=== PATIENT | female | born 2000 | race Caucasian/White ===

== ENCOUNTER 2020-03-28 11:05 | Emergency (ER) | payer SELFPAY ==
--- NOTE | 2020-03-28 12:38 | ER ---
Nurse's Notes [facility] Name: Augustine Cade Age: 19 yrs Sex: Female : 2000 Arrival Date: 03/28/2020 Time: 11:10 Bed 7 Private MD: Diagnosis: Nausea with vomiting, unspecified Presentation: 03/28 11:10 Chief complaint: EMS states: 19YO WF, 37 WK GESTATION, VOMITING x5 THIS AM. Coronavirus bp screen: At this time, the client does not indicate any symptoms associated with coronavirus-19. Ebola Screen: No symptoms or risks identified at this time. Initial Sepsis Screen: Does the patient meet any 2 criteria? No. Patient's initial sepsis screen is negative. Does the patient have a suspected source of infection? No. Patient's initial sepsis screen is negative. Risk Assessment: Do you want to hurt yourself or someone else? Patient reports no desire to harm self or others. Onset of symptoms was March 28, 2020. Care prior to arrival: Medication(s) given: zofran 4 mg, IV initiated. 20 GA, in the right antecubital area. 11:10 Method Of Arrival: EMS: [facility] bp 11:10 Acuity: GLENN 4 bp Triage Assessment: 11:13 General: Appears in no apparent distress. comfortable, Behavior is cooperative, bp appropriate for age, anxious. Pain: Denies pain. EENT: No deficits noted. Neuro: No deficits noted. Cardiovascular: No deficits noted. Respiratory: No deficits noted. GI: Reports nausea, vomiting. : No signs and/or symptoms were reported regarding the genitourinary system. Derm: No deficits noted. Musculoskeletal: No deficits noted. Historical: - Allergies: 11:13 No Known Allergies; bp - Home Meds: 11:13 None [Active]; bp - PMHx: 11:13 None; bp - Immunization history:: Adult Immunizations up to date. - Social history:: Smoking status: Patient denies any tobacco usage or history of. - Family history:: not pertinent. - Hospitalizations: : No recent hospitalization is reported. Screenin:13 Abuse screen: Denies threats or abuse. Denies injuries from another. Nutritional bp screening: No deficits noted. Tuberculosis screening: No symptoms or risk factors identified. Fall Risk None identified. Assessment: 11:13 General: SEE TRIAGE NOTE. GI: Abdomen is GRAVID. bp 11:54 Reassessment: ALL CURRENT ORDERS COMPLETED. UOP RESULTS PENDING. bp 12:52 Reassessment: PT D/C HOME AMBULATORY, DX WITH UTI AND NAUSEA/VOMITING. bp Vital Signs: 11:10 BP 106 / 64; Pulse 72; Resp 16; Temp 98; Pulse Ox 100% ; bp 11:54 BP 141 / 84; Pulse 91; Resp 17; Pulse Ox 100% ; bp 12:52 BP 109 / 51; Pulse 87; Resp 16; Temp 98; Pulse Ox 98% ; bp Vitals: 11:27 Heart Tones 140. bp ED Course: 11:10 Patient arrived in ED. bp 11:12 Triage completed. bp 11:13 Arm band placed on. bp 11:13 Patient has correct armband on for positive identification. Bed in low position. Call bp light in reach. Side rails up X2. 11:13 Maintain EMS IV. Dressing intact. Good blood return noted. Site clean \T\ dry. Gauge \T\ bp site: 20 GAUGE L AC. 11:14 Kevin Dolan, RN is Primary Nurse. bp 11:15 Ye Tran MD is Attending Physician. rn 12:52 No provider procedures requiring assistance completed. IV discontinued, intact, bp bleeding controlled, No redness/swelling at site. Pressure dressing applied. Administered Medications: No medications were administered Outcome: 12:37 Discharge ordered by . rn 12:52 Discharged to home ambulatory. bp 12:52 Condition: stable 12:52 Discharge instructions given to patient, Instructed on discharge instructions, follow up and referral plans. medication usage, Demonstrated understanding of instructions, follow-up care, medications, Prescriptions given X 1. 12:54 Patient left the ED. bp Signatures: eY Tran MD MD rn Peltier, Brian, RN RN bp
--- NOTE | 2020-03-28 12:38 | EDPHYS ---
Physician Documentation [facility] Name: Augustine Cade Age: 19 yrs Sex: Female : 2000 Arrival Date: 03/28/2020 Time: 11:10 Bed 7 Private MD: ED Physician Ye Tran HPI: 03/28 11:30 This 19 yrs old Female presents to ER via EMS with complaints of Vomiting. rn 11:30 The patient presents to the emergency department with nausea, vomiting. Onset: The rn symptoms/episode began/occurred this morning. Possible causes: unknown, . The symptoms are aggravated by nothing. The symptoms are alleviated by nothing. Severity of symptoms: At their worst the symptoms were moderate in the emergency department the symptoms have improved. The patient has experienced similar episodes in the past. Reports woke up this morning, threw up 4-5 times, no blood, no fever/abd pain/diarrhea. No trauma. No vaginal bleeding or discharge. Is 37 weeks gestation, is feeling baby move. Given 4mg zofran by EMS, and now states feels fine. Has private OB. Reports no leakage of fluid but has noticed over last 3 days feels "wet". . Historical: - Allergies: 11:13 No Known Allergies; bp - Home Meds: 11:13 None [Active]; bp - PMHx: 11:13 None; bp - Immunization history:: Adult Immunizations up to date. - Social history:: Smoking status: Patient denies any tobacco usage or history of. - Family history:: not pertinent. - Hospitalizations: : No recent hospitalization is reported. ROS: 11:30 Constitutional: Negative for fever, chills, and weight loss, Eyes: Negative for injury, rn pain, redness, and discharge, Cardiovascular: Negative for chest pain, palpitations, and edema, Respiratory: Negative for shortness of breath, cough, wheezing, and pleuritic chest pain, Abdomen/GI: Negative for abdominal pain, diarrhea, and constipation, : Negative for injury, bleeding, discharge, and swelling, MS/Extremity: Negative for injury and deformity, Skin: Negative for injury, rash, and discoloration, Neuro: Negative for headache, weakness, numbness, tingling, and seizure. Exam: 11:30 Constitutional: This is a well developed, well nourished patient who is awake, alert, rn and in no acute distress. Head/Face: Normocephalic, atraumatic. Cardiovascular: Regular rate and rhythm. No pulse deficits. Respiratory: No increased work of breathing, no retractions or nasal flaring. Abdomen/GI: soft, + gravid uterus with movement. No tenderness or rebound. Skin: Warm, dry with normal turgor. Normal color with no rashes, no lesions, and no evidence of cellulitis. MS/ Extremity: Pulses equal, no cyanosis. Neurovascular intact. Full, normal range of motion. Equal circumference. Neuro: Awake and alert, GCS 15, oriented to person, place, time, and situation. Cranial nerves II-XII grossly intact. Motor strength 5/5 in all extremities. Sensory grossly intact. Cerebellar exam normal. Vital Signs: 11:10 BP 106 / 64; Pulse 72; Resp 16; Temp 98; Pulse Ox 100% ; bp 11:54 BP 141 / 84; Pulse 91; Resp 17; Pulse Ox 100% ; bp 12:52 BP 109 / 51; Pulse 87; Resp 16; Temp 98; Pulse Ox 98% ; bp MDM: 11:15 Patient medically screened. rn 12:35 Differential diagnosis: gastritis, viral gastroenteritis, gastroenteritis, rn related nausea, UTI. Data reviewed: vital signs, nurses notes, lab test result(s), and as a result, I will discharge patient. Counseling: I had a detailed discussion with the patient and/or guardian regarding: the historical points, exam findings, and any diagnostic results supporting the discharge/admit diagnosis, lab results, the need for outpatient follow up, to return to the emergency department if symptoms worsen or persist or if there are any questions or concerns that arise at home. Response to treatment: the patient's symptoms have markedly improved after treatment, the patient's condition has returned to base line, the patient is now symptom free, and as a result, I will discharge patient. Special discussion: I discussed with the patient/guardian in detail that at this point there is no indication for admission to the hospital. It is understood, however, that if the symptoms persist or worsen the patient needs to return immediately for re-evaluation. Based on the history and exam findings, there is no indication for further emergent testing or inpatient evaluation. I discussed with the patient/guardian the need to see the OB Gyne specialist for further evaluation of the symptoms. ED course: Pt feels much better after EMS zofran, UA neg for infection, FHTs normal. Repeat exam does not reveal abd pain, is ambulatory to bathroom without apparent pain. Recommend she goes to [facility] for nitrazine testing and to rule out rupture of membranes given "feeling wet" for a few days. Pt understands.. 03/28 11:15 Order name: Urine Microscopic Only; Complete Time: 12:45 rn 03/28 11:58 Order name: Urine Dipstick--Ancillary (enter results) em1 03/28 11:15 Order name: Urine Dipstick-Ancillary (obtain specimen); Complete Time: 11:54 rn 03/28 11:15 Order name: FHT's; Complete Time: 11:27 rn 03/28 11:15 Order name: PO challenge; Complete Time: 11:54 rn 03/28 12:45 Order name: Urine Culture EDMS Administered Medications: No medications were administered Disposition: 03/28/20 12:37 Discharged to Home. Impression: Nausea with vomiting, unspecified. - Condition is Stable. - Discharge Instructions: Nausea and Vomiting, Adult, Third Trimester of , [id number]. - Prescriptions for Macrobid 100 mg Oral Capsule - take 1 capsule by ORAL route every 12 hours for 7 days; 14 capsule. - Medication Reconciliation Form, Thank You Letter, Antibiotic Education, Prescription Opioid Use form. - Follow up: Private Physician; When: 1 - 2 days; Reason: Recheck today's complaints, Re-evaluation by your physician. - Problem is new. - Symptoms have improved. Signatures: Dispatcher [employer] EDMS Ye Tran MD MD rn Peltier, Brian, RN RN bp Corrections: (The following items were deleted from the chart) 12:54 12:37 03/28/2020 12:37 Discharged to Home. Impression: Nausea with vomiting, bp unspecified. Condition is Stable. Forms are Medication Reconciliation Form, Thank You Letter, Antibiotic Education, Prescription Opioid Use. Follow up: Private Physician; When: 1 - 2 days; Reason: Recheck today's complaints, Re-evaluation by your physician. Problem is new. Symptoms have improved. rn
[2020-03-28 12:43] LABS: Urine Bacteria 20-50 /HPF (<20); Urine Culture Reflex Order REFLEXED; Urine Mucus 3+ /HPF (NONE SEEN); Urine RBC <5 /HPF (NONE SEEN)
[2020-03-28 12:50] LABS: Urine Blood NEGATIVE (NEG); Urine Glucose NEGATIVE (NEG); Urine Protein 1+ (NEG); Urine Specific Gravity >1.030 (1.005-1.030); Urine pH 5.5 (5.0-7.0)
[2020-03-28 13:14] VITALS: TEMP 98
[2020-03-28 13:17] VITALS: BP 109/51; O2SAT 98
== END 2020-03-28 12:54 | disposition home or self-care (01) ==
LOC: ER 11:05
DX: O21.9 Vomiting of pregnancy, unspecified (principal); Z3A.37 37 weeks gestation of pregnancy
CPT/HCPCS: 81003; 81015; 87086; 87088; 99283

== ENCOUNTER 2023-01-04 16:54 | Emergency (ER) | payer SELFPAY ==
[2023-01-04] MEDS ORDERED: GLYCERIN PEDI RECTAL SUPP PR ONE (17:36)
[2023-01-04 17:54] LABS: Absolute Lymphocytes (CBC) 0.9 K/uL (0.7-4.9); Hematocrit 34.4 % (36.0-45.0); Lymphocytes % 6.8 % (15.3-44.8); MPV 7.7 fL (7.6-11.3); RBC Red Blood Cell Count 3.91 M/uL (3.86-4.86)
[2023-01-04 17:54] LABS: Specific Gravity 1.019 (1.005-1.030); Urine Bilirubin NEGATIVE (Negative); Urine Blood Negative (Negative); Urine Clarity Clear (Clear); Urine Color Light-Yellow (Yellow); Urine Glucose NEGATIVE (Negative); Urine Protein NEGATIVE (Negative); Urine Urobilinogen Normal (Normal); Urine pH 6.5 (5.0-7.0)
[2023-01-04 18:22] LABS: Potassium 3.7 mEq/L (3.5-5.1)
--- NOTE | 2023-01-04 18:34 | RAD REPORT ---
EXAM DESCRIPTION: US - Transvaginal OB - 01/04/2023 6:17 pm CLINICAL HISTORY: ABD CRAMPING, COMPARISON: No comparisons TECHNIQUE: Sonographic grayscale and color flow images of the pelvis were obtained through transvagi nal approach. FINDINGS: No live intrauterine is identified. Thickened endometrium, measuring 2.[address], with trace fluid within the endometrial cavity, and echogenic margins. No gestational sac. Maternal ovaries are identified, with the right ovary measuring 2.6 x 1.5 x 1.5 centimeter, and left ovary measuring 2.9 x 1.8 x 2.0 centimeter. A thick walled cystic left adnexal structure separate fro m the ovary measures 1.9 x 1.4 x 1.5 centimeter, and demonstrates ring of fire vascularity. Moderate, mildly complex, free pelvic fluid. IMPRESSION: 1. No intrauterine . 2. Cystic thick-walled left adnexal structure with ring of fire vascularity separate from the left ov chauncey, with free pelvic fluid. Findings raise concern for a ruptured ectopic . Please correlat e clinically, and with beta HCG level. The findings were communicated to Sadiq Bolton on 01/04/2023 at 18:27 hours.
--- NOTE | 2023-01-04 18:48 | ER ---
Nurse's Notes [facility] Name: Augustine Cade Age: 22 yrs Sex: Female : 2000 Arrival Date: 01/04/2023 Time: 16:54 Bed 6 Private MD: Diagnosis: Other ectopic without intrauterine -ruptured Presentation: 01/04 17:00 Chief complaint: Patient states: ABD/Pelvic cramping since 01/02/23, states about 6 vg1 weeks . Stated is spotting and has been constipated for about two weeks. Coronavirus screen: Vaccine status: Patient reports being unvaccinated. Client denies travel out of the [place] in the last 14 days. Ebola Screen: Patient negative for fever greater than or equal to 101.5 degrees Fahrenheit, and additional compatible Ebola Virus Disease symptoms Patient denies exposure to infectious person. Patient denies travel to an Ebola-affected area in the 21 days before illness onset. Initial Sepsis Screen: Does the patient meet any 2 criteria? No. Patient's initial sepsis screen is negative. Does the patient have a suspected source of infection? No. Patient's initial sepsis screen is negative. Risk Assessment: Do you want to hurt yourself or someone else? Patient reports no desire to harm self or others. Onset of symptoms was January 02, 2023. 17:00 Method Of Arrival: Wheelchair vg1 17:00 Acuity: GLENN 3 vg1 Triage Assessment: 17:06 General: Appears uncomfortable, Behavior is crying. Pain: Complains of pain in right vg1 lower quadrant, left lower quadrant and pelvis Pain currently is 8 out of 10 on a pain scale. Pain began 2-3 days ago. GI: Reports nausea, vomiting. : Reports vaginal bleeding that is spotty, dark red. 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 - Social history:: Smoking status: Reported history of juuling and/or vaping. Screenin:09 [facility] ED Fall Risk Assessment (Adult) History of falling in the last 3 months, ph including since admission No falls in past 3 months (0 pts) Confusion or Disorientation No (0 pts) Intoxicated or Sedated No (0 pts) Impaired Gait No (0 pts) Mobility Assist Device Used No (0 pt) Altered Elimination No (0 pt) Score/Fall Risk Level 0 - 2 = Low Risk Oriented to surroundings, Maintained a safe environment, Hourly rounding (assess needs \T\ fall precautionary measures) done. Abuse screen: Denies threats or abuse. Denies injuries from another. Nutritional screening: No deficits noted. Tuberculosis screening: No symptoms or risk factors identified. Assessment: 17:20 General: Appears in no apparent distress. Behavior is cooperative, appropriate for age, ph anxious, crying. Pain: Complains of pain in suprapubic area. Neuro: Level of Consciousness is awake, alert, obeys commands, Oriented to person, place, time, situation. Cardiovascular: Capillary refill < 3 seconds in bilateral fingers Patient's skin is warm and dry. Respiratory: Airway is patent Respiratory effort is even, unlabored, Respiratory pattern is regular, symmetrical. GI: Abd is soft X 4 quads Reports lower abdominal pain, constipation, nausea. : Reports vaginal bleeding that is brown, spotty. Derm: Skin is pink, warm \T\ dry. Vital Signs: 17:00 BP 111 / 73; Pulse 89; Resp 16; Temp 98.4(O); Pulse Ox 99% on R/A; Weight 47.63 kg; vg1 Height 5 ft. 0 in. ; Pain 8/10; 18:49 BP 141 / 90; Pulse 82; Resp 18; Pulse Ox 98% on R/A; ph 19:23 BP 107 / 69; Pulse 82; Resp 17; Pulse Ox 100% on R/A; ll3 17:00 Body Mass Index 20.51 (47.63 kg, 152.4 cm) vg1 17:00 Pain Scale: Adult vg1 ED Course: 16:55 Patient arrived in ED. ts1 16:55 [facility]C [facility]. kb 16:55 Sadiq Bolton MD is Attending Physician. kb 17:06 Triage completed. vg1 17:06 Arm band placed on. vg1 17:09 Ramonita Horvath, RN is Primary Nurse. ph 17:10 Patient has correct armband on for positive identification. Bed in low position. Call ph light in reach. Side rails up X 1. Pulse ox on. NIBP on. Door closed. Noise minimized. Warm blanket given. 17:13 Radiology exam delayed due to test not completed at this time. aa4 17:21 Missed attempt(s): 22 gauge in right antecubital area. Bleeding controlled, band aid ph applied, catheter tip intact. 18:19 US Transvaginal Ob In Process Unspecified. EDMS 18:43 called and spoke with Norah Quick \ transfer center. kj1 18:49 Inserted saline lock: 22 gauge in left antecubital area, using aseptic technique. ph 18:51 No provider procedures requiring assistance completed. Patient transferred, IV remains ph in place. 19:23 Patient transferred, IV remains in place. ll3 Administered Medications: 17:42 Drug: Glycerin (Adult) [place] Suppository 1 supp Route: CO; ph 19:23 Follow up: Response: No adverse reaction ll3 19:02 Drug: NS 0.9% IV 1000 ml Route: IV; Rate: 1000 ml; Site: left antecubital; ph 19:22 Follow up: Response: No adverse reaction; IV Status: Infusion continued upon transfer; ll3 IV Intake: 500ml 19:02 Drug: Ondansetron IVP 4 mg Route: IVP; Site: left antecubital; ph 19:22 Follow up: Response: No adverse reaction ll3 19:03 Drug: morphine IVP or IV 4 mg Route: IVP; Infused Over: 4 mins; Site: left antecubital; ph 19:22 Follow up: Response: No adverse reaction; Marked relief of symptoms ll3 Medication: 17:09 VIS not applicable for this client. ph Intake: 19:22 IV: 500ml; Total: 500ml. ll3 Outcome: 18:48 ER care complete, transfer ordered by MD. jean 19:23 Transferred by ground EMS to [facility], Transfer form ll3 completed. X-rays sent w/ patient. 19:23 Condition: stable 19:23 Instructed on the need for transfer, Demonstrated understanding of instructions. 19:43 Patient left the ED. ll3 Signatures: Dispatcher [employer] EDMS Mary Cardenas, FAWN-Caryn BIOFUELS PLANT CONSTRUCTION WORKER-Ckb Deborah Wells aa4 Ramonita Horvath, RN RN ph Ronald, Praveena kj1 Romina Bronson RN RN vg1 Jamie Zheng RN RN ll3 Bell Barrera, [place] [facility] ts1
--- NOTE | 2023-01-04 18:48 | EDPHYS ---
Physician Documentation [facility] Name: Augustine Caed Age: 22 yrs Sex: Female : 2000 Arrival Date: 01/04/2023 Time: 16:54 Bed 6 Private MD: ED Physician Sadiq Bolton HPI: 01/04 17:10 This 22 yrs old Female presents to ER via Wheelchair with complaints of Abdominal kb Cramping, Vaginal Bleeding, 6wks preg. 17:10 The patient presents to the emergency department with abdominal pain, of the suprapubic kb area, described as crampy, vaginal bleeding, described as spotting. The estimated gestational age is 6 weeks. course: care: at a clinic, Leakage of Fluid: none appreciated, Ultrasound: the patient had an ultrasound, which was normal. Previous pregnancies: in previous pregnancies patient has had vaginal delivery, no complications. Associated signs and symptoms: Pertinent positives: abdominal pain, vaginal bleeding. The patient has not experienced similar symptoms in the past. The patient has not recently seen a physician. 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 - Social history:: Smoking status: Reported history of juuling and/or vaping. ROS: 17:09 Constitutional: Negative for fever, chills, and weight loss. kb 17:09 Abdomen/GI: Positive for constipation, abdominal cramps. 17:09 : Positive for vaginal bleeding. 17:09 All other systems are negative. Exam: 17:09 Constitutional: This is a well developed, well nourished patient who is awake, alert, kb and in no acute distress. Head/Face: Normocephalic, atraumatic. ENT: Moist Mucous membranes Cardiovascular: Regular rate and rhythm with a normal S1 and S2. No gallops, murmurs, or rubs. No pulse deficits. Respiratory: Respirations even and unlabored. No increased work of breathing. Talking in full sentences Skin: Warm, dry with normal turgor. Normal color. MS/ Extremity: Pulses equal, no cyanosis. Neurovascular intact. Full, normal range of motion. Neuro: Awake and alert, GCS 15, oriented to person, place, time, and situation. Moves all extremities. Normal gait. 17:09 Abdomen/GI: Inspection: abdomen appears normal, Bowel sounds: normal, Palpation: soft, in all quadrants, mild abdominal tenderness, in the suprapubic area. Vital Signs: 17:00 BP 111 / 73; Pulse 89; Resp 16; Temp 98.4(O); Pulse Ox 99% on R/A; Weight 47.63 kg; vg1 Height 5 ft. 0 in. ; Pain 8/10; 18:49 BP 141 / 90; Pulse 82; Resp 18; Pulse Ox 98% on R/A; ph 19:23 BP 107 / 69; Pulse 82; Resp 17; Pulse Ox 100% on R/A; ll3 17:00 Body Mass Index 20.51 (47.63 kg, 152.4 cm) vg1 17:00 Pain Scale: Adult vg1 MDM: 16:55 Patient medically screened. kb 17:10 Data reviewed: vital signs, nurses notes. kb 17:11 Differential diagnosis: threatened Ab, inevitable Ab, complete Ab, constipation. kb 18:39 Consideration of Admission/Observation pt will be transferred due to lack of OB at this facility. Counseling: I had a detailed discussion with the patient and/or guardian regarding: the historical points, exam findings, and any diagnostic results supporting the discharge/admit diagnosis, lab results, radiology results, the need to transfer to another facility, [facility] does not immediately have the required specialist. 18:58 ED course: Dr Pagan accepts pt to [facility]. kb 01/04 17:03 Order name: Abo/rh Typing; Complete Time: 19:02 kb 01/04 17:03 Order name: Basic Metabolic Panel; Complete Time: 18:27 kb 01/04 17:03 Order name: CBC with Diff; Complete Time: 18:01 kb 18 17:03 Order name: Test, Urine; Complete Time: 17:57 kb 18 17:03 Order name: Quantitative Hcg; Complete Time: 18:27 kb 18 17:03 Order name: Urinalysis w/ reflexes; Complete Time: 17:57 kb 01/04 17:03 Order name: US Transvaginal Ob; Complete Time: 18:38 kb 01/04 17:03 Order name: IV Saline Lock; Complete Time: 17:10 kb 01/04 17:03 Order name: Labs collected and sent; Complete Time: 17:20 kb 01/04 17:03 Order name: NPO; Complete Time: 17:20 kb Administered Medications: 17:42 Drug: Glycerin (Adult) [place] Suppository 1 supp Route: [place]; ph 19:23 Follow up: Response: No adverse reaction ll3 19:02 Drug: NS 0.9% IV 1000 ml Route: IV; Rate: 1000 ml; Site: left antecubital; ph 19:22 Follow up: Response: No adverse reaction; IV Status: Infusion continued upon transfer; ll3 IV Intake: 500ml 19:02 Drug: Ondansetron IVP 4 mg Route: IVP; Site: left antecubital; ph 19:22 Follow up: Response: No adverse reaction ll3 19:03 Drug: morphine IVP or IV 4 mg Route: IVP; Infused Over: 4 mins; Site: left antecubital; ph 19:22 Follow up: Response: No adverse reaction; Marked relief of symptoms ll3 Disposition Summary: 01/04/23 18:48 Transfer Ordered Transfer Location: [facility] kb Reason: Higher level of care kb Condition: Stable kb Problem: new kb Symptoms: are unchanged kb Accepting Physician: (01/04/23 19:43) ll3 Diagnosis - Other ectopic without intrauterine - ruptured kb Forms: - Medication Reconciliation Form kb - SBAR form kb Signatures: Dispatcher [employer] Mary Velasco, SHAYANC STRAIGHTENING PRESS OPERATOR HELPER-Ramonita Vaughn, RN RN ph Romina Bronson, RN RN vg1 Jamie Zheng, RN RN ll3 Corrections: (The following items were deleted from the chart) 19:43 18:48 Dr jean ll3
[2023-01-04] MEDS ORDERED: NA CHLORIDE 0.9% 1,000 ML ONE (18:51)
[2023-01-04] MEDS ORDERED: MORPHINE 4 MG/ML SYR ONE (19:05)
[2023-01-04] MEDS ORDERED: ONDANSETRON 4 MG/2 ML VIAL ONE (19:05)
[2023-01-04 20:01] VITALS: TEMP 98.4
[2023-01-04 20:04] VITALS: BP 107/69; O2SAT 100
== END 2023-01-04 19:43 | disposition short-term general hospital (02) ==
LOC: ER 16:54
DX: O00.80 Other ectopic pregnancy without intrauterine pregnancy (principal)
CPT/HCPCS: 36415; 76817; 80048; 81003; 81025; 84702; 85025; 86900; 86901; 96374; 96375; 99285; J2405; J7030

== ENCOUNTER → 2023-10-02 | Emergency (ER) | payer SELFPAY ==
[~2023-10-02] MED LIST: NA CHLORIDE 0.9% 1,000 ML ONE; NA CHLORIDE 0.9% 500 ML ONE; ONDANSETRON 4 MG/2 ML VIAL ONE
[2023-10-02 23:36] LABS: Absolute Lymphocytes (CBC) 1.4 K/uL (0.7-4.9); Absolute Monocytes 0.8 K/uL (0.1-1.3); Absolute Neutrophil 7.9 K/uL (1.8-8.0); Basophils % 0.4 % (0-1.3); Eosinophils % 0.3 % (0-4.4); Hematocrit 27.6 % (36.0-45.0); Hemoglobin 9.5 g/dL (12.0-15.0); Lymphocytes % 13.3 % (15.3-44.8); MCHC 34.2 g/dL (32.0-36.0); MCV 84.8 fL (80-100); Monocytes % 7.8 % (3.3-12.3); Neutrophils % 78.2 % (41.7-73.7); Platelets 233 thou/uL (152-406); RBC Red Blood Cell Count 3.26 M/uL (3.86-4.86); Red Cell Distribution Width 15.8 % (12.1-15.2)
--- NOTE | 2023-10-02 23:49 | EDPHYS ---
Physician Documentation [facility] Name: Augustine Cade Age: 23 yrs Sex: Female : 2000 Arrival Date: 10/02/2023 Time: 22:56 Bed 1 Private MD: ED Physician Niles Norwood HPI: 10/01 23:09 This 23 yrs old Female presents to ER via Unassigned with complaints of 37 sp4 wks preg contractions. 23:34 Patient is a -0-0-3 at estimated 37 weeks EGA by sonogram, not established with sp4 care. Patient made 1 visit to [facility] 2 weeks 3 days ago where she was established to have single intrauterine . Currently patient states she is 37 weeks gestational age. Patient states she started hugo at 5 AM this morning contractions have intensified, and patient presents here for evaluation. . 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 - Social history:: Smoking status: Patient denies any tobacco usage or history of. - Family history:: not pertinent. ROS: 23:34 Constitutional: Negative for fever, chills, and weight loss, Positive contractions , sp4 positive at estimated 37 weeks EGA 23:34 All other systems are negative, Exam: 23:34 Constitutional: This is a well developed, well nourished patient who is awake, alert, sp4 and in no acute distress. Head/Face: Normocephalic, atraumatic. Eyes: Pupils equal round and reactive to light, extra-ocular motions intact. Lids and lashes normal. Conjunctiva and sclera are not injected. Cornea within normal limits. Periorbital areas with no swelling, redness, or edema. ENT: Nares patent. No nasal discharge, no septal abnormalities noted. Tympanic membranes are normal and external auditory canals are clear. Oropharynx with no redness, swelling, or masses, exudates, or evidence of obstruction, uvula midline. Mucous membranes moist. Neck: Trachea midline, no thyromegaly or masses palpated, and no cervical lymphadenopathy. Supple, full range of motion without nuchal rigidity, or vertebral point tenderness. Chest/axilla: Normal chest wall appearance and motion. Nontender with no deformity. No lesions are appreciated. Cardiovascular: Regular rate and rhythm with a normal S1 and S2. No gallops, murmurs, or rubs. Normal PMI, no JVD. No pulse deficits. Respiratory: Lungs have equal breath sounds bilaterally, clear to auscultation and percussion. No rales, rhonchi or wheezes noted. No increased work of breathing, no retractions or nasal flaring. Abdomen/GI: Soft, with normal bowel sounds. No distension or tympany. No guarding or rebound. No evidence of tenderness throughout. Back: No spinal tenderness. No costovertebral tenderness. Skin: Warm, dry with normal turgor. Normal color with no rashes, no lesions, and no evidence of cellulitis. MS/ Extremity: Pulses equal, no cyanosis. Neurovascular intact. Full, normal range of motion. Neuro: Awake and alert, GCS 15, oriented to person, place, time, and situation. Cranial nerves II-XII grossly intact. Motor strength 5/5 in all extremities. Sensory grossly intact. Psych: Awake, alert, with orientation to person, place and time. Behavior, mood, and affect are within normal limits Vital Signs: 23:14 BP 124 / 75; Pulse 87; Resp 18; Temp 97.8(IR); Pulse Ox 98% on R/A; Weight 62.6 kg; cm10 Height 5 ft. 0 in. ; Pain 6/10; 10/02 00:19 BP 122 / 79; Pulse 88; Resp 18; Pulse Ox 100% on R/A; Pain 6/10; cm10 10/01 23:14 Body Mass Index 26.95 (62.60 kg, 152.4 cm) cm10 10/01 23:14 Pain Scale: Adult cm10 10/02 00:19 Pain Scale: Adult cm10 MDM: 10/01 23:33 Patient medically screened. sp4 23:41 Differential Diagnosis altered mental status, sepsis, flu. Data reviewed: vital signs, sp4 nurses notes, lab test result(s), radiologic studies, ultrasound. 10/01 23:10 Order name: CBC with Diff; Complete Time: 23:49 sp4 10/01 23:10 Order name: CMP sp4 10/01 23:10 Order name: Lipase sp4 10/01 23:11 Order name: US OB Limited sp4 10/01 23:10 Order name: IV Saline Lock; Complete Time: 23:43 sp4 10/01 23:10 Order name: Labs collected and sent; Complete Time: 23:43 sp4 Administered Medications: 23:43 Drug: NS 0.9% IV 1000 ml IV at 125 ml/hr continuous Route: IV; Rate: 125 ml/hr; Site: [facility] right hand; 10/02 00:20 Follow up: Response: No adverse reaction; IV Status: Infusion continued upon transfer cm10 10/01 23:43 Drug: NS 0.9% IV 500 ml IV at bolus once Route: IV; Rate: bolus; Site: right hand; 10 10/02 00:20 Follow up: Response: No adverse reaction; IV Status: Completed infusion; IV Intake: cm10 500ml 10/01 23:43 Not Given (Patient Refused): ondansetron 4 mg IVP once; over 2 minutes cm10 Disposition Summary: 10/02/23 23:48 Transfer Ordered Notes: Transfer Location: [facility]-System sp4 Reason: Higher level of care sp4 Condition: Stable sp4 Problem: new sp4 Symptoms: have improved sp4 Accepting Physician: Jonathan PRETTY with [facility] accepted (10/03/23 00:23) cm10 Diagnosis - Early labor , at 37 weeks gestational age sp4 Forms: - Medication Reconciliation Form sp4 - SBAR form sp4 Addendum: 10/04/2023 04:51 Addendum: Ultrasound has revealed at 0 9:11 AM length estimated at 34 weeks 4 s p4 days EGA, heart rate 1 76-1 52, cephalic presentation, cervix not visualized, posterior placenta with no evidence of previa, lower limit of normal amniotic fluid index of 5.8 cm , single intrauterine . . Signatures: Dispatcher [employer] Niles Corey MD MD sp4 Geena Tse RN RN cm10 Corrections: (The following items were deleted from the chart) 10/02 00:23 10/01 23:48 Jonathan PRETTY with [facility] accepted sp4 cm10
--- NOTE | 2023-10-02 23:49 | ER ---
Nurse's Notes [facility] Name: Augustine Cade Age: 23 yrs Sex: Female : 2000 Arrival Date: 10/02/2023 Time: 22:56 Bed 1 Private MD: Diagnosis: Early labor , at 37 weeks gestational age Presentation: 10/01 23:14 Chief complaint: Patient states: Contractions onset this morning. pt states that the cm10 pain got worse 3 hours ago. pt reports that she is 37 weeks , no . Pt states that her water hasn't broken yet. Coronavirus screen: Client denies travel out of the [place] in the last 14 days. At this time, the client does not indicate any symptoms associated with coronavirus-19. Ebola Screen: Patient denies travel to an Ebola-affected area in the 21 days before illness onset. No symptoms or risks identified at this time. Initial Sepsis Screen: Does the patient meet any 2 criteria? No. Patient's initial sepsis screen is negative. Does the patient have a suspected source of infection? No. Patient's initial sepsis screen is negative. Risk Assessment: Do you want to hurt yourself or someone else? Patient reports no desire to harm self or others. Patient reports desire/thoughts of hurting themselves or someone else. Provider notified. Onset of symptoms was October 02, 2023. 23:14 Method Of Arrival: Wheelchair cm10 23:14 Acuity: GLENN 2 cm10 Triage Assessment: 23:20 General: Appears uncomfortable, Behavior is calm, cooperative. Pain: Complains of pain cm10 in abdomen. Neuro: No deficits noted. Level of Consciousness is awake, alert, obeys commands, Oriented to person, place, time, situation. Cardiovascular: No deficits noted. Patient's skin is warm and dry. Respiratory: No deficits noted. Airway is patent Respiratory effort is even, unlabored, Respiratory pattern is regular, symmetrical. GI: No deficits noted. No signs and/or symptoms were reported involving the gastrointestinal system. : No deficits noted. Derm: No deficits noted. No signs and/or symptoms reported regarding the dermatologic system. Musculoskeletal: No deficits noted. No signs and/or symptoms reported regarding the musculoskeletal system. 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 - Social history:: Smoking status: Patient denies any tobacco usage or history of. - Family history:: not pertinent. Screenin:46 [facility] ED Fall Risk Assessment (Adult) History of falling in the last 3 months, cm10 including since admission No falls in past 3 months (0 pts) Confusion or Disorientation No (0 pts) Intoxicated or Sedated No (0 pts) Impaired Gait Yes (1 pt) Mobility Assist Device Used Yes (1 pt) Altered Elimination No (0 pt) Score/Fall Risk Level 0 - 2 = Low Risk Oriented to surroundings, Maintained a safe environment, Hourly rounding (assess needs \T\ fall precautionary measures) done. Abuse screen: Denies threats or abuse. Denies injuries from another. Nutritional screening: No deficits noted. Tuberculosis screening: No symptoms or risk factors identified. Vital Signs: 23:14 BP 124 / 75; Pulse 87; Resp 18; Temp 97.8(IR); Pulse Ox 98% on R/A; Weight 62.6 kg; cm10 Height 5 ft. 0 in. ; Pain 6/10; 10/02 00:19 BP 122 / 79; Pulse 88; Resp 18; Pulse Ox 100% on R/A; Pain 6/10; cm10 10/01 23:14 Body Mass Index 26.95 (62.60 kg, 152.4 cm) cm10 10/01 23:14 Pain Scale: Adult cm10 10/02 00:19 Pain Scale: Adult cm10 Vitals: 10/01 23:44 Heart Tones 152 confirmed via OB ultrasound. cm10 ED Course: 22:59 Patient arrived in ED. hb 23:09 Niles Norwood MD is Attending Physician. sp4 23:16 Triage completed. cm10 23:17 Arm band placed on Patient placed in an exam room. cm10 23:29 Initiated transfer with Treva at [facility]. rv1 23:31 Ultrasound at bedside. cm10 23:32 Assist provider with pelvic exam: Performed by Niles Norwood MD. Initial lab(s) cm10 drawn, by in, sent to lab. Inserted saline lock: 18 gauge in right hand, using aseptic technique. Blood collected. 23:[address] Castillo to [facility]. rv1 23:43 US OB Limited In Process Unspecified. EDMS 23:46 Patient has correct armband on for positive identification. Placed in gown. Bed in low cm10 position. Call light in reach. Provided Education on: Need for transfer. Report given to Amy Ackerman RN at [facility]. 10/02 00:23 Report given to [facility] with [facility]. cm10 00:23 Patient transferred, IV remains in place. cm10 Administered Medications: 10/01 23:43 Drug: NS 0.9% IV 1000 ml IV at 125 ml/hr continuous Route: IV; Rate: 125 ml/hr; Site: [facility] right hand; 10/02 00:20 Follow up: Response: No adverse reaction; IV Status: Infusion continued upon transfer cm10 10/01 23:43 Drug: NS 0.9% IV 500 ml IV at bolus once Route: IV; Rate: bolus; Site: right hand; cm10 10/02 00:20 Follow up: Response: No adverse reaction; IV Status: Completed infusion; IV Intake: cm10 500ml 03 23:43 Not Given (Patient Refused): ondansetron 4 mg IVP once; over 2 minutes cm10 Medication: 23:47 VIS not applicable for this client. cm10 Intake: 10/02 00:20 IV: 500ml; Total: 500ml. cm10 Outcome: 10/01 23:47 Transferred by ground EMS to [facility], Transfer form cm10 completed. Condition: good Instructed on the need for transfer, 23:48 ER care complete, transfer ordered by MD. hoffman 03 00:23 Patient left the ED. cm10 Signatures: Dispatcher [employer] EDMS Jany Dean RN RN hb Villegas, Rebecca rv1 Niles Norwood MD MD sp4 Geena Tse RN RN cm10 Corrections: (The following items were deleted from the chart) 10/01 23:44 23:44 5, Full Term 3, 1, Living 3, unknown cm10 cm10
[2023-10-02 23:53] LABS: Albumin 2.3 g/dL (3.4-5.0); Albumin/Globulin Ratio 0.6 (1.1-1.8); Anion Gap 10.7 mEq/L (5.0-15.0); Bilirubin Total 0.2 mg/dL (0.2-1.0); Potassium 3.7 mEq/L (3.5-5.1); Protein, Total 6.3 g/dL (6.4-8.2)
[2023-10-03 00:51] VITALS: BP 122/79; TEMP 97.8; O2SAT 100
--- NOTE | 2023-10-03 19:00 | RAD REPORT ---
CLINICAL HISTORY: 37 weeks , contractions. COMPARISON: None. TECHNIQUE: Real-time grayscale and color Doppler images of the fetus were obtained utilizing transab dominal technique. FINDINGS: FL: 6.7 cm (34 weeks 4 days) heart rate: 176 bpm and 152 beats per minutes. KATHRYN: 5.8 cm, with a deepest vertical pocket of 2.9 cm. Cephalic presentation. Cervix is not visualized due to shadowing. Posterior placenta with no evidence of previa. IMPRESSION: Lower limit of normal amniotic fluid index of 5.8 cm. Electronically signed by: Maria De Jesus Alaniz MD 10/03/2023 12:04 AM CDT Due to temporary technical issues with the PACS/Fluency reporting system, reports are being signed by the in house radiologists without review as a courtesy to insure prompt reporting. The interpreting radiologist is fully responsible for the content of the report.
== END ==
LOC: ER 22:56
DX: O60.03 Preterm labor without delivery, third trimester (principal); Z3A.37 37 weeks gestation of pregnancy
CPT/HCPCS: 36415; 76815; 80053; 83690; 85025; 96360; 99285; J2405; J7030; J7040